=== PATIENT | male | born 1965 | race Two or more races ===

== ENCOUNTER 2025-05-16 05:37 | Inpatient (IN) | payer MEDICAID, OTHER ==
[2025-05-16] VITALS (44 sets, daily range): BP systolic 79–114; BP diastolic 44–78; TEMP 98–99.4; O2SAT 97–100
[~2025-05-16] VITALS: Ht 165.1 cm; Wt 62.6 kg
[2025-05-16] MEDS ORDERED: PANTOPRAZOLE 40 MG VIAL ONE ×2 (05:59→09:08)
[2025-05-16] MEDS ORDERED: ONDANSETRON HCL/PF 4 MG/2 ML VIAL ONE (05:59)
[2025-05-16] MEDS: PANTOPRAZOLE 80 MG in IV NS 0.9% 100 ML IV ONE (06:08)
[2025-05-16] MEDS: IV NS 0.9% 1,000 ML BAG IV ONE (06:08)
[2025-05-16] MEDS: ONDANSETRON HCL/PF 4 MG/2 ML VIAL IVP ONE (06:08)
[2025-05-16 06:10] LABS: PLATELET COUNT (AUTO) 309 K/uL (150-450); RED BLOOD CELL COUNT(AUTO) 2.77 MIL/uL (4.5-6.0); RED CELL DISTRIBUTION WIDTH 14.2 % (11.5-15.0); WHITE BLOOD COUNT (AUTO) 11.2 K/uL (4.3-11.0)
[2025-05-16 06:23] LABS: INR 1.04 (0.91-1.10)
[2025-05-16 06:26] LABS: ASPARTATE AMINOTRANSFERASE 63.0 U/L (15-37); CALCIUM, SERUM 7.9 mg/dL (8.5-10.1); CREATININE 1.1 mg/dL (0.6-1.3); SODIUM SERUM 137.0 mmol/L (136-145); TOTAL PROTEIN, SERUM 5.5 g/dL (6.4-8.2); UREA NITROGEN, BLOOD 15.0 mg/dL (7-18)
[2025-05-16] MEDS ORDERED: MIDODRINE HCL (5MG) 5 MG TABLET ONE (06:30)
[2025-05-16] MEDS: MIDODRINE HCL (5MG) 5 MG TABLET PO STA (06:37)
[2025-05-16] MEDS ORDERED: IV NS 0.9% 1,000 ML IV SCH (07:30)
[2025-05-16] MEDS ORDERED: hydrALAZINE HCL IV 20 MG VIAL IV PRN (07:30)
[2025-05-16] MEDS ORDERED: MORPHINE SULFATE INJ 2 MG/ML DISP.SYRIN IV PRN (07:30)
[2025-05-16] MEDS ORDERED: ACETAMINOPHEN 325 MG TABLET PO PRN (07:30)
[2025-05-16] MEDS: PANTOPRAZOLE 40 MG VIAL IV SCH (09:12)
[2025-05-16] MEDS: IV NS 0.9% 1,000 ML IV PRN (10:08)
[2025-05-16] MEDS: IV NS 0.9% 1,000 ML IV SCH ×2 (12:00→17:36)
[2025-05-16 17:48] LABS: PLATELET COUNT (AUTO) 166 K/uL (150-450); RED BLOOD CELL COUNT(AUTO) 2.65 MIL/uL (4.5-6.0); RED CELL DISTRIBUTION WIDTH 16.8 % (11.5-15.0); WHITE BLOOD COUNT (AUTO) 7.7 K/uL (4.3-11.0)
[2025-05-16] MEDS ORDERED: PANT40TA49 PO (19:04)
[2025-05-16] MEDS ORDERED: HYDR-4303 PO (19:04)
[2025-05-16] MEDS ORDERED: FAMO20TA8 PO (19:04)
[2025-05-16] MEDS ORDERED: SIME80TA15 PO (19:04)
[2025-05-16] MEDS ORDERED: ONDA-97 PO (19:04)
[2025-05-16] MEDS ORDERED: IBUP-1957 PO (19:04)
[2025-05-16] MEDS ORDERED: SENN-261 PO (19:04)
[2025-05-16] MEDS ORDERED: NOREPINEPHRINE 8MG/250ML RTU 250 ML IV ONE (21:23)
[2025-05-16] MEDS: NOREPINEPHRINE 8 MG in IV D5W 242 ML IV PRN (21:38)
[2025-05-16] MEDS: IV NS 0.9% 1,000 ML IV STA (22:12)
[2025-05-17] VITALS (49 sets, daily range): BP systolic 90–131; BP diastolic 48–84; TEMP 97.6–98.5; O2SAT 97–100
[2025-05-17 04:08] LABS: PLATELET COUNT (AUTO) 246 K/uL (150-450); RED BLOOD CELL COUNT(AUTO) 3.20 MIL/uL (4.5-6.0); RED CELL DISTRIBUTION WIDTH 16.3 % (11.5-15.0); WHITE BLOOD COUNT (AUTO) 11.4 K/uL (4.3-11.0)
[2025-05-17 04:30] LABS: ASPARTATE AMINOTRANSFERASE 39 U/L (15-37); CALCIUM, SERUM 7.3 mg/dL (8.5-10.1); CREATININE 0.6 mg/dL (0.6-1.3); PHOSPHORUS 3.1 mg/dL (2.5-4.9); SODIUM SERUM 139 mmol/L (136-145); TOTAL PROTEIN, SERUM 5.1 g/dL (6.4-8.2); UREA NITROGEN, BLOOD 15 mg/dL (7-18)
[2025-05-17] MEDS: MIDODRINE HCL (5MG) 5 MG TABLET PO SCH (10:30)
[2025-05-17] MEDS: ONDANSETRON HCL/PF 4 MG/2 ML VIAL IVP PRN (10:40)
== END 2025-05-17 16:08 | disposition left against medical advice (07) | DRG 240 ==
LOC: ER 05:40 → ICU 11:29
PROVIDERS: ADMIT Internal Medicine; ATTEND Internal Medicine
PROC: 30233N1 Transfusion of Nonautologous Red Blood Cells into Peripheral Vein, Percutaneous Approach (ICD-10-PCS; 2025-05-16)
PROC: 0DJ08ZZ Inspection of Upper Intestinal Tract, Via Natural or Artificial Opening Endoscopic (ICD-10-PCS; principal; 2025-05-16 19:00)
DX: C16.1 Malignant neoplasm of fundus of stomach (principal); K85.90 Acute pancreatitis without necrosis or infection, unspecified; K92.2 Gastrointestinal hemorrhage, unspecified; C25.9 Malignant neoplasm of pancreas, unspecified; E44.1 Mild protein-calorie malnutrition; E88.09 Other disorders of plasma-protein metabolism, not elsewhere classified; D62 Acute posthemorrhagic anemia; E87.6 Hypokalemia; E86.1 Hypovolemia; K31.9 Disease of stomach and duodenum, unspecified
CPT/HCPCS: 36415; 71045-TC; 76700-TC; 80048-TC; 80053-TC; 80076-TC; 83690-TC; 83735-TC; 84100-TC; 85025-TC; 85027-TC; 85730-TC; 86850-TC; 87081-TC; A4223; G0378; J2405; J2470; J2704; J3490; J7030; J7040; P9016